=== PATIENT | male | born 1985 | race African-American/Black ===

== ENCOUNTER 2024-12-13 10:44 | Emergency (ER) | payer OTHER ==
[2024-12-13 11:04] VITALS: BP 111/81; PULSE 72; RESP 18; TEMP 98; BMI 20.9
[2024-12-13] MEDS ORDERED: ACETAMINOPHEN 500 MG TABLET (FP) ONE (11:17)
[2024-12-13] MEDS: ACETAMINOPHEN 500 MG TABLET (FP) PO ONE (11:19)
== END 2024-12-13 12:53 | disposition home or self-care (01) ==
LOC: FER 10:44
DX: M79.671 Pain in right foot (principal); M54.2 Cervicalgia; V53.6XXA Passenger in pick-up truck or van injured in collision with car, pick-up truck or van in traffic accident, initial encounter; Y92.410 Unspecified street and highway as the place of occurrence of the external cause
CPT/HCPCS: 73502-TC-RT-FY; 73562-TC-RT-FY; 73590-TC-RT-FY; 73610-TC-RT-FY; 73630-TC-RT-FY; 99284-25